=== PATIENT | male | born 1990 | race Two or more races ===

== ENCOUNTER → 2019-12-20 | Emergency (ER) | payer SELFPAY ==
[~2019-12-20] VITALS: Ht 170.2 cm; Wt 101.2 kg
[2019-12-20 15:16] LABS: Basophils # (auto) 0 10 ^3/uL (0-0.2); Basophils % (auto) 0.5 % (0.0-2.0); Eosinophils # (auto) 0.1 10 ^3/uL (0-0.8); Eosinophils % (auto) 1.1 % (0.0-7.0); Hematocrit 44.2 % (41.0-53.0); Lymphocytes # (auto) 1.8 10 ^3/uL (0.4-5.4); Lymphocytes % (auto) 23.1 % (10.0-50.0); Mean Corpuscular Volume 88.2 fL (80.0-100.0); Monocytes # (auto) 0.6 10 ^3/uL (0-1.3); Monocytes % (auto) 7.4 % (0.0-12.0); Neutrophils # (auto) 5.3 10 ^3/uL (1.6-8.6); Neutrophils % (auto) 67.9 % (37.0-80.0); Platelet Count (auto) 227 10^3/uL (140-450); Red Blood Cells 5.01 10^6/uL (4.5-5.90); Red Cell Distribution Width 13.2 % (11.8-14.3); White Blood Cell 7.8 10^3/uL (4.4-10.8)
[2019-12-20 15:37] LABS: Albumin 3.5 g/dL (3.4-5.0); BUN/Creatinine Ratio 10.5; Calcium 8.4 mg/dL (8.5-10.1); Potassium 3.6 mmol/L (3.5-5.1)
[2019-12-20 15:41] LABS: Bilirubin, Total 0.3 mg/dL (0.2-1.0); Total Protein 7.2 g/dL (6.4-8.2)
[2019-12-20 16:00] LABS: Urine Bacteria NONE SEEN /hpf (None Seen); Urine Blood Negative /uL (Negative); Urine Mucus FEW (None Seen); Urine Specific Gravity 1.028 (1.001-1.035); Urine WBC 1 /hpf (0 - 3)
[2019-12-20 16:20] VITALS: BP 109/64
== END | disposition home or self-care (01) ==
LOC: ER 14:36
DX: R10.11 Right upper quadrant pain (principal)
CPT/HCPCS: 36415; 74176; 80053; 81001; 83690; 85025

== ENCOUNTER 2022-08-31 14:31 | Emergency (ER) | payer BC ==
[~2022-08-31] VITALS: Ht 170.2 cm; Wt 93.5 kg
[2022-08-31 15:10] LABS: Basophils # (auto) 0 10 ^3/uL (0-0.2); Basophils % (auto) 0.4 % (0.0-2.0); Eosinophils # (auto) 0 10 ^3/uL (0-0.8); Eosinophils % (auto) 0.7 % (0.0-7.0); Hematocrit 43.7 % (41.0-53.0); Lymphocytes # (auto) 1.2 10 ^3/uL (0.4-5.4); Lymphocytes % (auto) 19.9 % (10.0-50.0); Mean Corpuscular Hemoglobin 33.2 pg (28.0-32.0); Mean Corpuscular Hgb Conc. 34.3 g/dL (32.0-36.0); Mean Corpuscular Volume 96.9 fL (80.0-100.0); Monocytes # (auto) 0.4 10 ^3/uL (0-1.3); Monocytes % (auto) 6.3 % (0.0-12.0); Neutrophils # (auto) 4.5 10 ^3/uL (1.6-8.6); Neutrophils % (auto) 72.7 % (37.0-80.0); Nucleated Red Blood Cells % 0.1 %; Red Blood Cells 4.51 10^6/uL (4.5-5.90); Red Cell Distribution Width 14.6 % (11.8-14.3); White Blood Cell 6.2 10^3/uL (4.4-10.8)
[2022-08-31] MEDS ORDERED: ONDANSETRON ODT 4 MG TAB PO ONE (15:15)
[2022-08-31] MEDS ORDERED: HYDROcodone-ACET 5/325MG TAB PO ONE (15:15)
[2022-08-31 15:28] LABS: BUN/Creatinine Ratio 11.3; Calcium 9.2 mg/dL (8.5-10.1); Potassium 3.9 mmol/L (3.5-5.1)
[2022-08-31 15:31] LABS: Lactic Acid w/Reflex 3.6 mmol/L (0.4-2.0)
[2022-08-31 15:37] LABS: Urine Bacteria NONE SEEN /hpf (None Seen); Urine Blood 3+ /uL (Negative); Urine Mucus FEW (None Seen); Urine Specific Gravity 1.027 (1.001-1.035); Urine WBC 5 /hpf (0 - 3)
[2022-08-31 15:57] LABS: Bilirubin, Total 0.4 mg/dL (0.2-1.0); Total Protein 7.6 g/dL (6.4-8.2)
[2022-08-31] MEDS ORDERED: cefTRIAXone 1GM/50ML D5W 50 ML IV ONE (16:00)
[2022-08-31] MEDS ORDERED: SODIUM CHLORIDE 0.9% 1,000 ML IV ONE (16:00)
[2022-08-31] MEDS ORDERED: KETOROLAC TROMETH 30 MG/ML 1ML VIAL IV ONE (17:00)
[2022-08-31] MEDS ORDERED: TAMSULOSIN HYDROCHLORIDE 0.4 MG CAP PO ONE (17:00)
[2022-08-31] MEDS ORDERED: TAM04C PO (19:16)
[2022-08-31] MEDS ORDERED: HYDR1TAB97 PO (19:16)
[2022-08-31] MEDS ORDERED: ONDA-144 PO (19:16)
[2022-08-31 19:30] VITALS: BP 147/92
== END 2022-08-31 19:40 | disposition home or self-care (01) ==
LOC: ER 14:31
DX: N20.2 Calculus of kidney with calculus of ureter (principal); Z79.899 Other long term (current) drug therapy
CPT/HCPCS: 36415; 74176; 80053; 81001; 83605; 85025; 96365; 96375; 99285; J0696; J1885; J7030; Q0162